=== PATIENT | female | born 1950 | race Caucasian/White ===

== ENCOUNTER 2017-05-07 13:39 | Outpatient (CLI) | payer MEDICARE ==
--- NOTE | 2017-05-07 17:21 | NM ---
HEPATOBILIARY SCAN 05/07/17 HISTORY: Abdominal pain. RADIOPHARMACEUTICAL: 5 millicuries technetium 99m-Mebrofenin injected intravenously. FINDINGS: There is good tracer extraction of the liver, prompt excretion of the biliary tract and small bowel l oops. Normal filling of the gallbladder. The calculated gallbladder ejection fraction following an or al fatty meal measures 93%. IMPRESSION: Normal exam. POS: [facility]
== END 2017-05-07 13:40 | disposition home or self-care (01) ==
LOC: NM 13:39
PROVIDERS: ATTEND Internal Medicine Gastroenterology
DX: Z12.11 Encounter for screening for malignant neoplasm of colon (principal); R10.9 Unspecified abdominal pain; Z83.79 Family history of other diseases of the digestive system
CPT/HCPCS: 78227; A9537

== ENCOUNTER 2017-06-09 16:24 | Outpatient (CLI) | payer MEDICARE ==
[2017-06-09 17:09] LABS: #Basophils 0.1 thou/uL (0.0-0.2); #Eosinphils 0.1 thou/uL (0.0-0.7); #Lymphocytes 2.3 thou/uL (1.20-3.40); #Monocytes 0.7 thou/uL (0.11-0.59); #Neutrophils 3.8 thou/uL (1.40-6.50); %Basophils 0.8 % (0.0-1.0); %Eosinophils 2.1 % (0.0-10.0); %Lymphocytes 33.5 % (21.0-51.0); %Monocytes 9.5 % (0.0-10.0); %Neutrophils 54.1 % (42.0-75.0); Hemoglobin 12.5 g/dL (12.0-16.0); Mean Corpuscular HGB CONC 32.9 g/dL (32.0-36.0); Mean Corpuscular Hemoglobin 28.4 pg (27.0-31.0); Mean Corpuscular Volume 86.3 fl (81.0-99.0); Mean Platelet Volume 7.4 fL (7.4-10.4); Platelet Count 257 thou/uL (130-400); RBC Distribution Width 13.3 % (11.5-14.5); Red Blood Cell (RBC) Count 4.42 mill/uL (4.20-5.40)
[2017-06-09 17:33] LABS: ALT (SGPT) 12 U/L (8-55); AST (SGOT) 18 U/L (5-34); Albumin 4.6 g/dL (3.4-4.8); Alkaline Phosphatase 49 U/L (40-150); Anion Gap 11 mmol/L (10-20); BUN (Urea Nitrogen) 11 mg/dL (9.8-20.1); Bilirubin, Direct 0.2 mg/dL (0.1-0.3); Bilirubin, Total 0.5 mg/dL (0.2-1.2); Calc. Creatinine Clearance 0 mL/min (70-130); Carbon Dioxide 24 mmol/L (23-31); Chloride 109 mmol/L (98-107); Estimated GFR-MDRD 59; Glucose 90 mg/dL (80-115); Potassium 4.1 mmol/L (3.5-5.1); Protein, Total 7.6 g/dL (6.0-8.3); Sodium 140 mmol/L (136-145)
== END 2017-06-09 16:25 | disposition home or self-care (01) ==
LOC: LABBT 16:24
PROVIDERS: ATTEND Surgery
DX: Z01.812 Encounter for preprocedural laboratory examination (principal); K82.8 Other specified diseases of gallbladder
CPT/HCPCS: 80048; 80076; 85025

== ENCOUNTER 2017-06-11 07:05 | Day surgery (SDC) | payer MEDICARE ==
[2017-06-09 16:27] VITALS: BMI 25.0
[2017-06-11] MEDS ORDERED: Levofloxacin 500 mg/D5W 100 ml Premix Bag ONE (08:47)
[2017-06-11] MEDS ORDERED: Bupivacaine/Epinephrine 0.25% 30 ML VIAL ONE (09:11)
[2017-06-11] MEDS ORDERED: Fentanyl 250 MCG/5 ML VIAL ONE (09:18)
[2017-06-11] MEDS ORDERED: HYDROmorphone 0.5 MG/0.5 ML SYRINGE ONE (09:19)
--- NOTE | 2017-06-11 13:00 | OP ---
DATE OF PROCEDURE: 06/11/2017 PREOPERATIVE DIAGNOSES: Chronic biliary dyskinesia and chronic cholecystitis. POSTOPERATIVE DIAGNOSES: Chronic biliary dyskinesia and chronic cholecystitis. PROCEDURE: Laparoscopic cholecystectomy. SURGEON: Hernán Ng M.D. ANESTHESIA: General. ESTIMATED BLOOD LOSS: Minimal. COMPLICATIONS: None. SPECIMEN: Gallbladder. FINDINGS: Chronic cholecystitis. PROCEDURE IN DETAIL: The patient was taken to the Operating Room and laid supine on the Operating Ro om table. After general anesthetic was obtained, the abdomen was prepped and draped in a sterile fas hion. A curved incision was made below the umbilicus. Cautery was used to dissect down to the umbil ical fascia. Umbilical fascia was incised and held up using a Dequna. The abdominal cavity was ente red using a Archana clamp. Holding stitch of Vicryl was placed on each side of the fascia. Fox tro car was placed. High-flow pneumoperitoneum was obtained. An upper midline 5-mm port and two right u pper quadrant 5-mm ports were placed under direct camera visualization. The gallbladder was retracte d from the gallbladder fossa. The peritoneum of the gallbladder was opened anteriorly and posteriorl y. The critical view triangle was seen showing only the cystic duct and cystic artery branching from medial to lateral. There were no other branching structures. Two clips were placed proximally on t he cystic duct and one laterally. It was cut using laparoscopic scissors. The cystic artery was aguilar en in the same way. Electrocautery was then used to dissect the gallbladder out of the gallbladder f roseanna. The gallbladder was placed in an Endo catch bag and brought out through the Fox. There was no bleeding or bile in the liver bed. The cystic duct stump and cystic artery stump were intact wit hout evidence of extravasation or bleeding. All port sites were infiltrated using local anesthesia. All ports were removed under camera visualization. Pneumoperitoneum was let down. The Vicryl was u sed to close the fascial defect below the umbilicus. All incisions were irrigated and closed using 4 -0 Monocryl and DermaBond. The patient was en route to Recovery in stable condition. All instrument counts, needle counts and lap counts were correct.
== END 2017-06-11 12:35 | disposition home or self-care (01) ==
LOC: SDC 07:05
PROVIDERS: ATTEND Surgery
PROC: 0FT44ZZ Resection of Gallbladder, Percutaneous Endoscopic Approach (ICD-10-PCS; principal; 2017-06-11)
DX: K81.1 Chronic cholecystitis (principal); K82.8 Other specified diseases of gallbladder; R12 Heartburn; Z88.0 Allergy status to penicillin; Z79.899 Other long term (current) drug therapy
CPT/HCPCS: 88304; J1170; J1956; J3010

== ENCOUNTER 2017-06-21 22:40 | Emergency (ER) | payer MEDICARE ==
[2017-06-21 23:59] LABS: #Basophils 0.1 thou/uL (0.0-0.2); #Eosinphils 0.3 thou/uL (0.0-0.7); #Monocytes 0.8 thou/uL (0.11-0.59); #Neutrophils 8.5 thou/uL (1.40-6.50); %Basophils 0.6 % (0.0-1.0); %Eosinophils 2.7 % (0.0-10.0); %Lymphocytes 16.8 % (21.0-51.0); %Neutrophils 72.9 % (42.0-75.0); Hemoglobin 11.9 g/dL (12.0-16.0); Mean Corpuscular HGB CONC 33.1 g/dL (32.0-36.0); Mean Corpuscular Hemoglobin 28.3 pg (27.0-31.0); Mean Corpuscular Volume 85.7 fl (81.0-99.0); Mean Platelet Volume 6.3 fL (7.4-10.4); Platelet Count 467 thou/uL (130-400); RBC Distribution Width 12.6 % (11.5-14.5); White Blood Cell (WBC) Count 11.6 thou/uL (4.8-10.8)
--- NOTE | 2017-06-22 00:02 | RAD ---
ACUTE ABDOMINAL SERIES: Indication: Post cholecystectomy one week ago with abdominal pain. FINDINGS: Lungs are clear. Cardiomediastinal silhouette is normal appearing. There is diffuse gaseous distentio n of the small and large bowel. There are some air fluid levels seen within the region of suspected c olon and small bowel. No acute osseous abnormality is evident. IMPRESSION: 1. Gaseous and fluid distention of the small and large bowel of the abdomen may reflect sequellae of ileus. Recommend correlation with clinical examination. 2. No acute cardiopulmonary abnormality is evident. POS: [facility]
[2017-06-22 00:15] LABS: ALT (SGPT) 17 U/L (8-55); AST (SGOT) 16 U/L (5-34); Albumin 4.2 g/dL (3.4-4.8); Alkaline Phosphatase 145 U/L (40-150); Anion Gap 13 mmol/L (10-20); BUN (Urea Nitrogen) 15 mg/dL (9.8-20.1); Bilirubin, Total 0.7 mg/dL (0.2-1.2); Calc. Creatinine Clearance 0 mL/min (70-130); Calcium 9.9 mg/dL (7.8-10.44); Carbon Dioxide 33 mmol/L (23-31); Chloride 96 mmol/L (98-107); Estimated GFR-MDRD 53; Globulin 3.3 g/dL (2.4-3.5); Glucose 107 mg/dL (80-115); Potassium 3.6 mmol/L (3.5-5.1); Protein, Total 7.5 g/dL (6.0-8.3); Sodium 138 mmol/L (136-145)
[2017-06-22] MEDS ORDERED: Famotidine/PF 20 mg/2ml Vial ONE (02:56)
[2017-06-22] MEDS ORDERED: Simethicone Chewable 80 MG TAB PO SCH (03:00)
[2017-06-22] MEDS ORDERED: Fentanyl 100 MCG/2 ML VIAL ONE (05:01)
[2017-06-22 06:08] LABS: Bilirubin Negative (Negative); Blood, Urine Small (Negative); Clarity CLEAR (Clear); Glucose, Urine (Dipstick) Negative (Negative); Leukocyte Trace (Negative); Nitrite Negative (Negative); Protein, Urine (Dipstick) Negative (Neg-Trace); Specific Gravity, Urine 1.018 (1.002-1.036); Urobilinogen 0.2 mg/dL (0.2-1.0)
[2017-06-22 06:32] LABS: Hyaline Casts/LPF NONE SEEN LPF (0-3 Hyaline)
[2017-06-22 06:33] LABS: Bacteria/HPF Rare-Few HPF (None Seen); RBC/HPF 0-3 HPF (0-3); Squamous Epithelial 0-3 HPF (0-3); WBC/HPF 0-3 HPF (0-3)
--- NOTE | 2017-06-22 08:51 | CT ---
PRELIMINARY REPORT/[facility]/EMERGENTY AFTER-HOURS PROCEDURE CT Abdomen and Pelvis With Intravenous Contrast CLINICAL HISTORY: 66 years old, female; Pain; Abdominal pain; Epigastric; Prior surgery; Surgery date: 3-7 days postope rative; Surgery type: Cholecystectomy; Patient HX: 66 yo f presents to ed C/O epigastric abdominal pain S/P c holecystectomy on 06/09/[address] Ng. No complications from surgery. Pt states that since the rianna gilberto she has been constipated and has had worsening abdominal pain. States that she is unable to slee p due to pain. Denies fever, denies vomiting. Pt has not passed gas or had bm since surgery. Denies urinary complaints. Pt called dr. Ng the following thursday after surgery who told her to take a stool softener and enema which provided no relief. Pt states she has n ot been taking any pain medication since the surgery. TECHNIQUE: Axial computed tomography images of the abdomen and pelvis with intravenous contrast. Coronal reforma tted images were created and reviewed. CONTRAST: 70 mL of ISOVUE 370 administered intravenously. COMPARISON: No relevant prior studies available. FINDINGS: Lung bases: Unremarkable. No mass. No consolidation. ABDOMEN: Liver: Unremarkable. No mass. Gallbladder and bile ducts: Post cholecystectomy with small fluid in the gallbladder fossa. Punctate hyperdensity on coronal image 42 in the gallbladder fossa is indeterminate No ductal dilation. Pancreas: Unremarkable. No mass. No ductal dilation. Spleen: Unremarkable. No splenomegaly. Adrenals: Unremarkable. No mass. Kidneys and ureters: Bilateral renal cysts No solid mass. Minimal fullness to the renal collecting sy stems noted. No hydroureter or distal calculi Stomach and bowel: Fluid in the colon with mild distention. No significant wall thickening No obstruc tion. No mucosal thickening. Appendix: No findings to suggest acute appendicitis. PELVIS: Bladder: Unremarkable. No mass. Reproductive: Unremarkable as visualized. ABDOMEN and PELVIS: Intraperitoneal space: Small pelvic fluid No free air. No significant fluid collection. Bones/joints: No acute fracture. No dislocation. Soft tissues: Unremarkable. Vasculature: Unremarkable. No abdominal aortic aneurysm. Lymph nodes: Unremarkable. No enlarged lymph nodes. IMPRESSION: Status post cholecystectomy with small fluid in the gallbladder fossa. Punctate hyperdensity in the g allbladder fossa is indeterminate and may represent postsurgical change versus minimal blood products . Evolving collection not excluded. Further evaluation recommended. Small pelvic fluid. No definite abscess Question diarrheal disease/minimal colitis Minimal fullness of the renal collecting systems without hydroureter or distal calculi. Thank you for allowing us to participate in the care of your patient. Dictated and Authenticated by: Gonzales John MD 06/22/2017 5:05 AM Central Time ([place] & [place]) FINAL REPORT ABDOMEN CT WITH CONTRAST PELVIC CT WITH CONTRAST: Date: 06/22/17 HISTORY: Epigastric pain. Abdominal pain. Status post cholecystectomy on 06/09/17. COMPARISON: None. TECHNIQUE: Abdomen and pelvis CT are performed with IV contrast. Enteric contrast was also administered. Coronal reformatted images submitted for interpretation. FINDINGS: This report is in agreement with the preliminary report by [facility]. Patient is status post cholecystecto my with a small amount of fluid in the gallbladder fossa. Fluid is indeterminate and may represent po stsurgical change versus blood products. If there is concern for bile leak, HIDA scan is recommended. There is mild fullness in bilateral intrarenal collecting systems without associated obstructive urop athy. Bilateral renal cortical cysts are identified. There is free fluid in the pelvis, which is pres umed to be postoperative. Fluid is slightly hyperdense suggesting complex/slightly hemorrhagic fluid. POS: [facility]
[2017-06-22] MEDS ORDERED: Iopamidol 370 76% 50 ML VIAL FS ONE (09:25)
[2017-06-22] MEDS ORDERED: ISOVUE-370 76%-LOCM 1 ML ONE (09:25)
== END 2017-06-22 07:35 | disposition home or self-care (01) ==
LOC: ERS 22:40
DX: G89.18 Other acute postprocedural pain (principal); R10.13 Epigastric pain; K59.00 Constipation, unspecified
CPT/HCPCS: 36415; 74022; 74177; 80053; 81003; 81015; 83605; 83690; 85025; 96361; 96374; 96375; J3010; S0028